=== PATIENT | female | born 1995 | race Caucasian/White ===

== ENCOUNTER 2016-07-13 06:00 | Inpatient (IN) ==
[2016-07-13] MEDS ORDERED: Famotidine 20 MG/2 ML VIAL IVP PRN (06:14)
[2016-07-13] MEDS ORDERED: miSOPROStol 25 MCG TABLET PO PRN (06:14)
[2016-07-13] MEDS ORDERED: Metoclopramide 10 MG/2 ML VIAL IVP PRN (06:14)
[2016-07-13] MEDS ORDERED: Ringers Solution, Lactated 1,000 ML IVC SCH (06:15)
[2016-07-13 07:23] LABS: Basophils # 0.1 K/mcL (0.0-0.2); Basophils % 0.4 %; Eosinophils # 0.1 K/mcL (0.0-0.6); Eosinophils % 1.1 %; Hemoglobin 10.3 g/dL (11.5-15.4); Immature Granulocytes % 0.6 % (0-4); Lymphocytes # 2.8 K/mcL (0.6-4.6); Lymphocytes % 23.6 %; Mean Corpuscular HGB Conc 31.2 g/dL (31.6-35.5); Mean Corpuscular Volume 76.7 fL (83.0-100.0); Mean Platelet Volume 9.5 fL (9.4-12.4); Monocytes # 1.1 K/mcL (0.0-1.3); Monocytes % 9.2 %; Neutrophils # 7.6 K/mcL (1.6-8.9); Platelet Count 312 K/mcL (140-400); Red Cell Distribution Width 15.6 % (11.5-14.5); Segmented Neutrophils % 65.1 %
--- NOTE | 2016-07-13 07:33 | OB/GYN History & Physical ---
Date of Encounter: 07/13/16 Time of Encounter: 07:33 Assessment and Plan (1) 39 weeks gestation of Current visit: Yes Status: Acute (2) Elective induction of labor planned Current visit: Yes Status: Acute Induction of labor with Cytotec (initial dose 25 by mouth) Epidural and Nubain if desired Patient requests NO visitors, wants a birthing ball, and requests no epidural. She wants to utilize a tens unit for pain. She is currently pain free. Encourage ambulation and use of birthing ball Anticipate History of Present Illness Chief complaint: Labor Induction HPI: Ms. Retana is a 21 year old female at 39'5 who presents for induction of labor. Her previous was uncomplicated and she had a vaginal delivery. She states this so far has been uncomplicated. She reports good movement. States this week she has had mucous blood tinged discharge on a few occasions. She denies any vaginal bleeding or fluid loss otherwise. She does admit to some SOB, but thinks it's because her belly is making it difficult to take in deep breaths. Denies chest pain, cramping, headache, vision changes, palpitations. She also denies dysuria but admits to urinary frequency. She denies the inability to void, has had minimal nausea, no vomiting, no diarrhea, no constipation. She is taking no medications. She has not smoke, used illicit drugs, or drank during this . She also denies any contractions or RUQ abdominal pain. Labs: O-, GBS negative, Rubella immune, HbSAG non reactive, T-palladiium negative, HIV negative, Varicella positive. Past Med Surg Social Fam HX - Past Medical History Medical history: no medical history Psychiatric history: no psych history - Past Surgical History Surgical History: other - Social History Smoking Status: Never smoker Alcohol use: none Drug use: none - Family History Mother Hx Family Medical Disorders: No (no history reported.) Obstetrical History - Pregnancies : 3 Review of System OB All systems PM: reviewed and no additional remarkable complaints except as stated - Constitutional Constitutional ROS IM: as per HPI Exam - Constitutional Constitutional: well developed, well nourished, no acute distress - HEENT HEENT: Mucus Membranes Moist - Neck Neck exam: normal inspection - Abdomen Abdomen: Present: bowel sounds normal - Extremities Extremities exam: pedal edema (trace) Results Result Diagrams: 07/13/16 06:45 Abnormal lab results WBC 11.7 K/mcL (4.3-11.1) H 07/13/16 06:45 Hgb 10.3 g/dL (11.5-15.4) L 07/13/16 06:45 Hct 33.0 % (35.3-44.9) L 07/13/16 06:45 MCV 76.7 fL (83.0-100.0) L 07/13/16 06:45 MCH 24.0 pg (28.0-33.3) L 07/13/16 06:45 MCHC 31.2 g/dL (31.6-35.5) L 07/13/16 06:45 RDW 15.6 % (11.5-14.5) H 07/13/16 06:45 All other labs normal. - VTE Reasons for not Prescribing Prophylaxis: Treatment not Indicated - Low risk for VTE
[2016-07-13] MEDS ORDERED: miSOPROStol 100 MCG TABLET PO ONE (07:58)
[2016-07-13] MEDS ORDERED: *HR* Nalbuphine 20 MG/ML AMPUL ONE (10:40)
[2016-07-13] MEDS ORDERED: *HR* Nalbuphine 20 MG/ML AMPUL IVP PRN (10:41)
--- NOTE | 2016-07-13 10:59 | OB Labor Progress Note ---
Date of Encounter: 07/13/16 Time of Encounter: 10:57 Labor Progress Note - Subjective Subjective: Pt reports severe discomfort with contractions at this time. She is requesting Nubain. - Cervix Cervix: 4-5/90/-1 - Heart Tones Heart Tones: Category I - [place]: 1.5-2.5 minutes - Plan Plan: Continue to monitor. Nubain for pain. Frequent repositioning for comfort. Anticipate .
[2016-07-13] MEDS ORDERED: *HR* FentaNYL (PF) 100 MCG/2 ML VIAL IVP PRN (12:35)
[2016-07-13] MEDS ORDERED: *HR* FentaNYL (PF) 100 MCG/2 ML VIAL ONE (12:47)
[2016-07-13] MEDS ORDERED: Lidocaine 1% 20 ML MDV ONE (12:47)
[2016-07-13] MEDS ORDERED: Oxytocin 20 units/ LR 1000 mL 20 UNIT/1,000 ML BAG IVC ONE (13:24)
--- NOTE | 2016-07-13 14:06 | OB/GYN Procedure Note ---
Delivery - Delivery Date: 07/13/16 Provider: Naseem Pan Intrapartum events: none Delivery induction: misoprostol Delivery monitor: external FHT, external uterine Anesthesia: local Estimated Blood Loss: 350 - Infant (s) Infant A Infant Delivery Date: 07/13/16 Infant Delivery Time: 13:32 Presentation: vertex Position: SAKINA Gender: Female Viability: Viable Weight Gram: 3.71 kg at 1 minute: 8 at 5 mins: 9 Shoulder Dystocia: not encountered Specimens collected: cord blood Placenta: spontaneous Cord: nuchal cord - Repair Laceration Description: Labial - Complications Delivery complications: none - Disposition Mom disposition: stable in LDR Goodell disposition: stable in LDR - Comments Comments: Pt s/p without incident. Loose nuchal reduced during delivery of infant. Small left labial tear repaired under local with 2 interuppted vicryl sutures Pt tolerated well. EBL 350 cc.
[2016-07-13] MEDS ORDERED: Measles/Mumps/Rubella Vacc 0.5 ML VIAL SQ PRN (14:23)
[2016-07-13] MEDS ORDERED: *HR* HYDROcodone/Acet 5/325 mg TABLET PO PRN (14:23)
[2016-07-13] MEDS ORDERED: Oxytocin 20 units/ LR 1000 mL 20 UNIT/1,000 ML BAG IVC SCH (14:23)
[2016-07-13] MEDS ORDERED: Benzocaine/Menthol 56 GM AEROSOL SPRAY TP PRN (14:23)
[2016-07-13] MEDS ORDERED: Acetaminophen 325 MG TABLET PO PRN (14:23)
[2016-07-13] MEDS ORDERED: Rho Immune Globulin 1,500 UNIT SYRINGE IM PRN (14:23)
[2016-07-13] MEDS: Ibuprofen 600 MG TABLET PO PRN (18:13)
[2016-07-14 05:29] LABS: Basophils % 0.2 %; Eosinophils # 0.1 K/mcL (0.0-0.6); Eosinophils % 0.5 %; Hematocrit 28.7 % (35.3-44.9); Immature Granulocytes % 0.9 % (0-4); Lymphocytes # 2.6 K/mcL (0.6-4.6); Lymphocytes % 15.1 %; Mean Corpuscular HGB Conc 31.4 g/dL (31.6-35.5); Mean Corpuscular Hemoglobin 24.1 pg (28.0-33.3); Mean Corpuscular Volume 76.9 fL (83.0-100.0); Mean Platelet Volume 9.4 fL (9.4-12.4); Monocytes # 1.6 K/mcL (0.0-1.3); Monocytes % 9.2 %; Neutrophils # 12.6 K/mcL (1.6-8.9); Platelet Count 307 K/mcL (140-400); Red Blood Count 3.73 M/mcL (3.82-4.97); Red Cell Distribution Width 15.7 % (11.5-14.5); Segmented Neutrophils % 74.1 %
--- NOTE | 2016-07-14 08:13 | Discharge Summary ---
Date of Encounter: 07/14/16 Time of Encounter: 08:10 - Discharge Diagnosis (1) Status post vaginal delivery Priority: Primary Status: Acute (2) Acute blood loss anemia Priority: Secondary Status: Acute - Discharge Medications Prescriptions: Ibuprofen [Motrin] 600 mg PO Q6HR PRN #30 tablet PRN Reason: Cramping Ferrous Sulfate 325 mg PO DAILY #40 tablet Home Medications: Ferrous Sulfate 325 mg PO DAILY #40 tablet 07/14/16 [Rx] Ibuprofen [Motrin] 600 mg PO Q6HR PRN #30 tablet 07/14/16 [Rx] Allergies/Adverse Reactions: Allergies No Known Allergies Allergy (Verified 07/13/16 09:02) Data Procedures and tests throughout hospitalization: Laboratory Tests 07/13/16 07/14/16 06:45 05:06 WBC 11.7 H 17.0 H RBC 4.30 3.73 L Hgb 10.3 L 9.0 L Hct 33.0 L 28.7 L MCV 76.7 L 76.9 L MCH 24.0 L 24.1 L MCHC 31.2 L 31.4 L RDW 15.6 H 15.7 H Plt Count 312 307 MPV 9.5 9.4 Immature Gran % 0.6 0.9 Seg Neutrophils % 65.1 74.1 Lymphocytes % 23.6 15.1 Monocytes % 9.2 9.2 Eosinophils % 1.1 0.5 Basophils % 0.4 0.2 Neutrophils # 7.6 12.6 H Lymphocytes # 2.8 2.6 Monocytes # 1.1 1.6 H Eosinophils # 0.1 0.1 Basophils # 0.1 0.0 Labs on day of discharge: Labs from last 24 hours 07/14/16 05:06 WBC 17.0 H RBC 3.73 L Hgb 9.0 L Hct 28.7 L MCV 76.9 L MCH 24.1 L MCHC 31.4 L RDW 15.7 H Plt Count 307 MPV 9.4 Immature Gran % 0.9 Seg Neutrophils % 74.1 Lymphocytes % 15.1 Monocytes % 9.2 Eosinophils % 0.5 Basophils % 0.2 Neutrophils # 12.6 H Lymphocytes # 2.6 Monocytes # 1.6 H Eosinophils # 0.1 Basophils # 0.0 Date of admission: 07/13/16 06:03 Primary care physician: PCP NO Consults: 07/13/16 14:23 Consult to [facility] [CONS] Routine Comment: Vaginal delivery, consult needed Discharging clinician: Eliu Weldon Anticipated date of discharge: 07/14/16 - Patient Status Disposition: Home, Self-Care Condition: Good Functional capacity at discharge: independent ambulation Overall status at discharge: patient is progressing back to baseline - Discharge Instructions Follow Up With: LUISANA,PCP [Primary Care Provider] - Naseem Pan MD [Partnered Physician] - - Diet and Activity Activity: increase activity as tolerated Diet: advance to your usual diet Hospital Course Reason for admission: induction of labor Delivery: Episiotomy: none Laceration: none complications: none Discharge diagnosis: IUP at term delivered Hospital course: Patient is a 21-year-old female who was brought in for induction of labor. Patient delivered vaginally without any complications. Patient's hospital course was unremarkable and she was discharged home on hospital day #1 with prescription for Motrin 600 mg and iron sulfate. Patient will follow-up in the office in 4 weeks patient's condition at the time of discharge was stable Time Attestation: Total time spent providing and/or coordinating discharge services: Exam - Constitutional Vitals: Temp Pulse Resp BP Pulse Ox 98.4 F 72 14 101/60 97 07/14/16 03:14 07/14/16 03:14 07/14/16 03:14 07/14/16 03:14 07/14/16 03:14 General appearance IM: A&O X 3 - Respiratory Respiratory exam: Present: CTAB - GI/Abdominal GI/Abdominal exam IM: normal bowel sounds - Uterus Position: At Umbilicus
[2016-07-14 08:20] VITALS: BP 115/73
[2016-07-14] MEDS: Ibuprofen 600 MG TABLET PO PRN (08:49)
[2016-07-14] MEDS ORDERED: Prenatal Vit/FA 1 EACH TABLET PO SCH (09:00)
== END 2016-07-14 15:10 | disposition home or self-care (01) | DRG 775 ==
LOC: 1NENULAB 06:03 → 1NENUOBS 15:33
PROVIDERS: ADMIT Obstetrics & Gynecology; ATTEND Obstetrics & Gynecology

== ENCOUNTER 2017-06-23 21:48 | Observation (INO) ==
[2017-06-23 22:40] LABS: Bilirubin,Urine Negative (Negative); Blood,Urine Negative (Negative); Clarity,Urine Clear (Clear); Color,Urine Yellow (Yellow); Glucose,Urine (UA) Normal (Normal); Ketones,Urine Negative (Negative); Leukocyte Esterase,Urine Negative (Negative); Nitrite,Urine Negative (Negative); Protein,Urine Negative (Neg-Trace); Specific Gravity,Urine 1.026 (1.010-1.025); Urobilinogen,Urine Normal (Normal)
[2017-06-23] MEDS ORDERED: 0.9 % Sodium Chloride 1,000 ML IVC ONE (22:56)
[2017-06-23] MEDS ORDERED: Ondansetron 4 MG/2 ML VIAL IVP ONE (22:57)
--- NOTE | 2017-06-23 23:00 | Emergency Department Note ---
Disposition Clinical Impression: Brugada syndrome, Influenza B Disposition: Admitted As Inpatient Condition: Fair Referrals: NONE,PCP [Non-Partnered Physician] - Forms: ED Satisfaction Letter Time of Disposition: 01:18 Nausea/Vomiting/Diarrhea HPI - General Chief complaint: ED Nausea/Vomiting/Diarrhea Stated complaint: dizzy/vomiting Time Seen by Provider: 06/23/17 22:53 Source: patient Mode of arrival: ambulatory Limitations: no limitations Nursing Notes Reviewed: Yes Vital Signs Reviewed: Yes - History of Present Illness HPI Narrative: Patient presents to the ED with the chief complaint of nausea and vomiting and dizziness. States she woke up not feeling well and has continued to fill worse throughout the day. States she has been vomiting anything she has to eat or drink. States that it got to the point where she feels dizzy whenever she stands up. Also complaining of a sore throat that she thinks this is from the vomiting. Denies any fever. No dysuria or hematuria. States she only has abdominal pain when she vomits and is located in epigastrium. Otherwise healthy. - Related Data Previous Rx's Medication Instructions Recorded Ferrous Sulfate 325 mg PO DAILY #40 tablet 07/14/16 Ferrous Sulfate 325 mg PO DAILY #40 tablet 07/14/16 Ibuprofen [Motrin] 600 mg PO Q6HR PRN #30 tablet 07/14/16 Ibuprofen [Motrin] 600 mg PO Q6HR PRN #30 tablet 07/14/16 Allergies Allergy/AdvReac Type Severity Reaction Status Date / Time No Known Allergies Allergy Verified 07/13/16 09:02 Review of Systems: As reviewed in the HPI. All other systems reviewed are negative or normal. Past Medical History - Past Medical History Attestation: Yes The following information was validated with the patient. Source: patient Medical history: Reports: other Surgical history: Reports: other Psychiatric history: Reports: anxiety, depression - Social History Smoking Status: Never smoker Smokeless Tobacco Status: No Alcohol use: Reports: occasionally Drug use: Reports: none Physical Exam - General Limitations: no limitations General appearance: alert, in no apparent distress - Head Head exam: atraumatic, normocephalic, normal inspection - Eye Eye exam: Present: normal appearance, PERRL, EOMI - ENT ENT exam: normal exam, normal oropharynx, mucous membranes moist - Chest Chest inspection: Present: normal inspection, symmetric chest wall rise - Respiratory Respiratory exam: Present: normal lung sounds bilaterally - Cardiovascular Cardiovascular exam: Present: normal rhythm, tachycardia, normal heart sounds. Absent: regular rate - Abdominal Exam Abdominal exam: Present: soft, Non-Tender. Absent: tenderness, distention, guarding, rebound, rigidity - Extremities Exam Extremities exam: Present: normal inspection, full ROM. Absent: tenderness, pedal edema - Neurological Exam Neurological exam: Present: alert, oriented X3 - Psychiatric Psychiatric exam: Present: normal affect, normal mood - Skin Skin exam: Present: warm, dry, intact, normal color Course Course Narrative: Patient presenting with dizziness and vomiting. Seems to be a gastroenteritis- type illness. She does not toxic, but does appear ill, but she is concerned she is dehydrated. Will get labs and EKG. - Reevaluation(s) Reevaluation #1: EKG is back and is concerning for Brugada syndrome. We will page the on-call chief librarian circulation department and have him take a look at the EKG. Spoke with Dr. Nettles, the on-call chief librarian circulation department. He agreed with Brugada. We will admit the patient for cardiac consult in the morning. In the meantime, we will attempt to find the source of her fever. We will check her for the flu, we will also get a chest x-ray and abdominal CT. Patient is flu be positive, which would account for fever. Patient will be admitted. Vital Signs Temperature 100.2 F H 06/23/17 21:50 Pulse Rate 110 06/23/17 21:50 Respiratory Rate 24 06/23/17 21:50 Blood Pressure 100/67 06/23/17 21:50 O2 Sat by Pulse Oximetry 96 06/23/17 21:50 Temperature 99.4 F 06/24/17 00:58 Pulse Rate 94 06/24/17 00:58 Respiratory Rate 20 06/24/17 00:58 Blood Pressure 89/58 06/24/17 00:58 O2 Sat by Pulse Oximetry 96 06/24/17 00:58 Oxygen Delivery Oxygen Delivery Room Air Nausea/Vomiting/Diarrhea - Lab Data Result diagrams: 06/23/17 22:51 06/23/17 22:51 Lab Results 06/23/17 06/23/17 06/23/17 Range/Units 22:25 22:25 22:51 WBC 4.3 (4.3-11.1) K/mcL RBC 4.54 (3.82-4.97) M/mcL Hgb 13.5 (11.5-15.4) g/dL Hct 40.0 (35.3-44.9) % MCV 88.1 (83.0-100.0) fL MCH 29.7 (28.0-33.3) pg MCHC 33.8 (31.6-35.5) g/dL RDW 14.1 (11.5-14.5) % Plt Count 169 (140-400) K/mcL MPV 9.3 L (9.4-12.4) fL Immature Gran % 0.2 (0-4) % Seg Neutrophils % 54.8 % Lymphocytes % 29.3 % Monocytes % 15.0 % Eosinophils % 0.2 % Basophils % 0.5 % Neutrophils # 2.4 (1.6-8.9) K/mcL Lymphocytes # 1.3 (0.6-4.6) K/mcL Monocytes # 0.7 (0.0-1.3) K/mcL Eosinophils # 0.0 (0.0-0.6) K/mcL Basophils # 0.0 (0.0-0.2) K/mcL ESR (0-15) mm/hr Sodium (136-145) mEq/L Potassium (3.5-5.1) mEq/L Chloride (98-107) mEq/L Carbon Dioxide (23-29) mEq/L BUN (6-20) mg/dL Creatinine (0.60-1.20) mg/dL Est GFR ( Amer) (> 60) Est GFR (Non-Af Amer) (> 60) BUN/Creatinine Ratio (6-26) Glucose (70-105) mg/dL Calculated Osmolality (280-300) Lactic Acid (0.5-2.2) mmol/L Calcium (8.6-10.3) mg/dL Total Bilirubin (0.3-1.0) mg/dL AST (13-39) Units/L ALT (7-52) Units/L Alkaline Phosphatase (34-104) Units/L Troponin I (< 0.04) ng/mL C-Reactive Protein (Less than 10) mg/L Serum Total Protein (6.4-8.9) g/dL Albumin (3.5-5.7) g/dL Globulin (2.4-3.5) g/dL Albumin/Globulin Ratio (1.1-2.2) Lipase (11-82) Units/L Urine Color Yellow (Yellow) Urine Clarity Clear (Clear) Urine pH 6.0 (5.0-8.0) pH Units Ur Specific [place] 1.026 H (1.010-1.025) Urine Protein Negative (Neg-Trace) mg/dL Urine Glucose (UA) Normal (Normal) mg/dL Urine Ketones Negative (Negative) mg/dL Urine Blood Negative (Negative) Urine Nitrite Negative (Negative) Urine Bilirubin Negative (Negative) Urine Urobilinogen Normal (Normal) mg/dL Ur Leukocyte Esterase Negative (Negative) Ur Culture Indicated? NO (NO) Urine Test Negative (Negative) 06/23/17 06/23/17 06/23/17 Range/Units 22:51 22:51 22:57 WBC (4.3-11.1) K/mcL RBC (3.82-4.97) M/mcL Hgb (11.5-15.4) g/dL Hct (35.3-44.9) % MCV (83.0-100.0) fL MCH (28.0-33.3) pg MCHC (31.6-35.5) g/dL RDW (11.5-14.5) % Plt Count (140-400) K/mcL MPV (9.4-12.4) fL Immature Gran % (0-4) % Seg Neutrophils % % Lymphocytes % % Monocytes % % Eosinophils % % Basophils % % Neutrophils # (1.6-8.9) K/mcL Lymphocytes # (0.6-4.6) K/mcL Monocytes # (0.0-1.3) K/mcL Eosinophils # (0.0-0.6) K/mcL Basophils # (0.0-0.2) K/mcL ESR 13 (0-15) mm/hr Sodium 138 (136-145) mEq/L Potassium 3.6 (3.5-5.1) mEq/L Chloride 104 (98-107) mEq/L Carbon Dioxide 27 (23-29) mEq/L BUN 8 (6-20) mg/dL Creatinine 0.90 (0.60-1.20) mg/dL Est GFR ( Amer) > 60 (> 60) Est GFR (Non-Af Amer) > 60 (> 60) BUN/Creatinine Ratio 9 (6-26) Glucose 99 (70-105) mg/dL Calculated Osmolality 284 (280-300) Lactic Acid 0.9 (0.5-2.2) mmol/L Calcium 9.2 (8.6-10.3) mg/dL Total Bilirubin 0.3 (0.3-1.0) mg/dL AST 27 (13-39) Units/L ALT 12 (7-52) Units/L Alkaline Phosphatase 85 (34-104) Units/L Troponin I < 0.03 (< 0.04) ng/mL C-Reactive Protein 12 H (Less than 10) mg/L Serum Total Protein 7.3 (6.4-8.9) g/dL Albumin 4.4 (3.5-5.7) g/dL Globulin 2.9 (2.4-3.5) g/dL Albumin/Globulin Ratio 1.5 (1.1-2.2) Lipase 28 (11-82) Units/L Urine Color (Yellow) Urine Clarity (Clear) Urine pH (5.0-8.0) pH Units Ur Specific [place] (1.010-1.025) Urine Protein (Neg-Trace) mg/dL Urine Glucose (UA) (Normal) mg/dL Urine Ketones (Negative) mg/dL Urine Blood (Negative) Urine Nitrite (Negative) Urine Bilirubin (Negative) Urine Urobilinogen (Normal) mg/dL Ur Leukocyte Esterase (Negative) Ur Culture Indicated? (NO) Urine Test (Negative)
[2017-06-23 23:04] LABS: Basophils % 0.5 %; Eosinophils % 0.2 %; Hemoglobin 13.5 g/dL (11.5-15.4); Immature Granulocytes % 0.2 % (0-4); Lymphocytes # 1.3 K/mcL (0.6-4.6); Lymphocytes % 29.3 %; Mean Corpuscular HGB Conc 33.8 g/dL (31.6-35.5); Mean Corpuscular Hemoglobin 29.7 pg (28.0-33.3); Mean Corpuscular Volume 88.1 fL (83.0-100.0); Mean Platelet Volume 9.3 fL (9.4-12.4); Monocytes # 0.7 K/mcL (0.0-1.3); Neutrophils # 2.4 K/mcL (1.6-8.9); Platelet Count 169 K/mcL (140-400); Red Blood Count 4.54 M/mcL (3.82-4.97); Red Cell Distribution Width 14.1 % (11.5-14.5); Segmented Neutrophils % 54.8 %
[2017-06-23 23:27] LABS: Alanine Aminotransferase 12 Units/L (7-52); Albumin 4.4 g/dL (3.5-5.7); Albumin/Globulin Ratio 1.5 (1.1-2.2); Alkaline Phosphatase 85 Units/L (34-104); Aspartate Amino Transferase 27 Units/L (13-39); BUN/Creatinine Ratio 9 (6-26); Bilirubin,Total 0.3 mg/dL (0.3-1.0); Blood Urea Nitrogen 8 mg/dL (6-20); Calcium 9.2 mg/dL (8.6-10.3); Carbon Dioxide 27 mEq/L (23-29); Chloride 104 mEq/L (98-107); Globulin 2.9 g/dL (2.4-3.5); Glucose 99 mg/dL (70-105); Lipase 28 Units/L (11-82); Osmolality,Calculated 284 (280-300); Potassium 3.6 mEq/L (3.5-5.1); Sodium 138 mEq/L (136-145); Total Protein 7.3 g/dL (6.4-8.9); eGFR For African Americans > 60 (> 60); eGFR For Non-African Americans > 60 (> 60)
[2017-06-23 23:55] LABS: Troponin I < 0.03 ng/mL (< 0.04)
[2017-06-23] MEDS ORDERED: Isovue-370 500 ML INFUS..BTL IV ONE (23:59)
[2017-06-24 00:01] LABS: C-Reactive Protein 12 mg/L (Less than 10)
--- NOTE | 2017-06-24 00:21 | Emergency Department Note ---
Disposition Clinical Impression: Brugada syndrome, Influenza B Disposition: Admitted As Inpatient Condition: Fair General Adult HPI - General Chief complaint: ED Nausea/Vomiting/Diarrhea Stated complaint: dizzy/vomiting Time Seen by Provider: 06/23/17 22:53 Source: patient Mode of arrival: ambulatory Limitations: no limitations Nursing Notes Reviewed: Yes Vital Signs Reviewed: Yes - History of Present Illness Pain Scale: 0 - Related Data Previous Rx's Medication Instructions Recorded Ferrous Sulfate 325 mg PO DAILY #40 tablet 07/14/16 Ferrous Sulfate 325 mg PO DAILY #40 tablet 07/14/16 Ibuprofen [Motrin] 600 mg PO Q6HR PRN #30 tablet 07/14/16 Ibuprofen [Motrin] 600 mg PO Q6HR PRN #30 tablet 07/14/16 Allergies Allergy/AdvReac Type Severity Reaction Status Date / Time No Known Allergies Allergy Verified 07/13/16 09:02 Past Medical History - Past Medical History Medical history: Reports: other Surgical history: Reports: other Psychiatric history: Reports: anxiety, depression - Social History Smoking Status: Never smoker Smokeless Tobacco Status: No Alcohol use: Reports: occasionally Drug use: Reports: none Physical Exam - General Limitations: no limitations General appearance: alert, in no apparent distress Course Vital Signs Temperature 100.2 F H 06/23/17 21:50 Pulse Rate 110 06/23/17 21:50 Respiratory Rate 24 06/23/17 21:50 Blood Pressure 100/67 06/23/17 21:50 O2 Sat by Pulse Oximetry 96 06/23/17 21:50 Temperature 99.4 F 06/24/17 00:58 Pulse Rate 94 06/24/17 00:58 Respiratory Rate 20 06/24/17 00:58 Blood Pressure 89/58 06/24/17 00:58 O2 Sat by Pulse Oximetry 96 06/24/17 00:58 Oxygen Delivery Oxygen Delivery Room Air Medical Decision Making - Lab Data Result diagrams: 06/23/17 22:51 06/23/17 22:51 Lab Results 06/23/17 06/23/17 06/23/17 Range/Units 22:25 22:25 22:51 WBC 4.3 (4.3-11.1) K/mcL RBC 4.54 (3.82-4.97) M/mcL Hgb 13.5 (11.5-15.4) g/dL Hct 40.0 (35.3-44.9) % MCV 88.1 (83.0-100.0) fL MCH 29.7 (28.0-33.3) pg MCHC 33.8 (31.6-35.5) g/dL RDW 14.1 (11.5-14.5) % Plt Count 169 (140-400) K/mcL MPV 9.3 L (9.4-12.4) fL Immature Gran % 0.2 (0-4) % Seg Neutrophils % 54.8 % Lymphocytes % 29.3 % Monocytes % 15.0 % Eosinophils % 0.2 % Basophils % 0.5 % Neutrophils # 2.4 (1.6-8.9) K/mcL Lymphocytes # 1.3 (0.6-4.6) K/mcL Monocytes # 0.7 (0.0-1.3) K/mcL Eosinophils # 0.0 (0.0-0.6) K/mcL Basophils # 0.0 (0.0-0.2) K/mcL ESR (0-15) mm/hr Sodium (136-145) mEq/L Potassium (3.5-5.1) mEq/L Chloride (98-107) mEq/L Carbon Dioxide (23-29) mEq/L BUN (6-20) mg/dL Creatinine (0.60-1.20) mg/dL Est GFR ( Amer) (> 60) Est GFR (Non-Af Amer) (> 60) BUN/Creatinine Ratio (6-26) Glucose (70-105) mg/dL Calculated Osmolality (280-300) Lactic Acid (0.5-2.2) mmol/L Calcium (8.6-10.3) mg/dL Total Bilirubin (0.3-1.0) mg/dL AST (13-39) Units/L ALT (7-52) Units/L Alkaline Phosphatase (34-104) Units/L Troponin I (< 0.04) ng/mL C-Reactive Protein (Less than 10) mg/L Serum Total Protein (6.4-8.9) g/dL Albumin (3.5-5.7) g/dL Globulin (2.4-3.5) g/dL Albumin/Globulin Ratio (1.1-2.2) Lipase (11-82) Units/L Urine Color Yellow (Yellow) Urine Clarity Clear (Clear) Urine pH 6.0 (5.0-8.0) pH Units Ur Specific [place] 1.026 H (1.010-1.025) Urine Protein Negative (Neg-Trace) mg/dL Urine Glucose (UA) Normal (Normal) mg/dL Urine Ketones Negative (Negative) mg/dL Urine Blood Negative (Negative) Urine Nitrite Negative (Negative) Urine Bilirubin Negative (Negative) Urine Urobilinogen Normal (Normal) mg/dL Ur Leukocyte Esterase Negative (Negative) Ur Culture Indicated? NO (NO) Urine Test Negative (Negative) 06/23/17 06/23/17 06/23/17 Range/Units 22:51 22:51 22:57 WBC (4.3-11.1) K/mcL RBC (3.82-4.97) M/mcL Hgb (11.5-15.4) g/dL Hct (35.3-44.9) % MCV (83.0-100.0) fL MCH (28.0-33.3) pg MCHC (31.6-35.5) g/dL RDW (11.5-14.5) % Plt Count (140-400) K/mcL MPV (9.4-12.4) fL Immature Gran % (0-4) % Seg Neutrophils % % Lymphocytes % % Monocytes % % Eosinophils % % Basophils % % Neutrophils # (1.6-8.9) K/mcL Lymphocytes # (0.6-4.6) K/mcL Monocytes # (0.0-1.3) K/mcL Eosinophils # (0.0-0.6) K/mcL Basophils # (0.0-0.2) K/mcL ESR 13 (0-15) mm/hr Sodium 138 (136-145) mEq/L Potassium 3.6 (3.5-5.1) mEq/L Chloride 104 (98-107) mEq/L Carbon Dioxide 27 (23-29) mEq/L BUN 8 (6-20) mg/dL Creatinine 0.90 (0.60-1.20) mg/dL Est GFR ( Amer) > 60 (> 60) Est GFR (Non-Af Amer) > 60 (> 60) BUN/Creatinine Ratio 9 (6-26) Glucose 99 (70-105) mg/dL Calculated Osmolality 284 (280-300) Lactic Acid 0.9 (0.5-2.2) mmol/L Calcium 9.2 (8.6-10.3) mg/dL Total Bilirubin 0.3 (0.3-1.0) mg/dL AST 27 (13-39) Units/L ALT 12 (7-52) Units/L Alkaline Phosphatase 85 (34-104) Units/L Troponin I < 0.03 (< 0.04) ng/mL C-Reactive Protein 12 H (Less than 10) mg/L Serum Total Protein 7.3 (6.4-8.9) g/dL Albumin 4.4 (3.5-5.7) g/dL Globulin 2.9 (2.4-3.5) g/dL Albumin/Globulin Ratio 1.5 (1.1-2.2) Lipase 28 (11-82) Units/L Urine Color (Yellow) Urine Clarity (Clear) Urine pH (5.0-8.0) pH Units Ur Specific [place] (1.010-1.025) Urine Protein (Neg-Trace) mg/dL Urine Glucose (UA) (Normal) mg/dL Urine Ketones (Negative) mg/dL Urine Blood (Negative) Urine Nitrite (Negative) Urine Bilirubin (Negative) Urine Urobilinogen (Normal) mg/dL Ur Leukocyte Esterase (Negative) Ur Culture Indicated? (NO) Urine Test (Negative) Attestation Statement - Attestation Attestation: I, Shashank Lopez MD, personally evaluated this patient and discussed their management with the resident physician. I reviewed the resident's note and agree with the documented findings, medical decision making, and plan of care. 22-year-old female presents to the emergency department with a complaint of nausea and vomiting all day today. She states she felt bad this morning when she got up and it has progressed throughout the day. She has vomited 6-8 times. She also has had chills and subjective fever. No diarrhea. No abdominal pain. No melena, hematemesis, or hematochezia. No prior abdominal surgeries. No dysuria or gross hematuria. No increased urinary frequency. No cough or chest pain or shortness of breath. No palpitations. She also complains of feeling dizzy and lightheaded when she gets up and moves around. She states that it feels like the room is spinning and she feels like she is going to pass out. No syncope. On examination patient is a well-developed well-nourished young female in no acute distress. She is alert and oriented 3. There is no cyanosis or diaphoresis. Mucous membranes are moist. Neck is supple and nontender with no lymphadenopathy and full range of motion. Chest is nontender to palpation. Breath sounds are clear and equal bilaterally. Heart regular with a mild tachycardia. Abdomen soft and nontender with decreased bowel sounds. No guarding or rebound tenderness. No CVA tenderness. No organomegaly or masses. No tympany or distention. No pedal edema. No gross focal neurological deficits. Labs reviewed. EKG shows a sinus rhythm with first-degree block, MA 217. QRS 118. QTC 394. Type III Brugada pattern, ST elevation in V1 and V2. EKG was reviewed by the dairy bar manager, Dr. Nettles. He agrees it is a Brugada pattern but does not feel there is acute [place]. He recommends admission by the hospitalist with cardiology consultation. Labs reviewed. Chest x-ray and CT the abdomen and pelvis are pending. The hospitalist, Dr. Jackson, was consulted and accepted admission of the patient.
--- NOTE | 2017-06-24 02:55 | Internal Med History&Physical ---
Date of Encounter: 06/24/17 Time of Encounter: 02:36 Internal Medicine - H&P: HPI History of present illness: Ms. Ochoa is a 22 year old female Past Med Surg Social Fam HX - Past Medical History Medical history: other Psychiatric history: anxiety, depression - Past Surgical History Surgical History: other - Social History Smoking Status: Never smoker Smokeless Tobacco Status: No Alcohol use: occasionally Drug use: none Internal Medicine - H&P: Meds Ferrous Sulfate 325 mg PO DAILY #40 tablet 07/14/16 [Rx] Ferrous Sulfate 325 mg PO DAILY #40 tablet 07/14/16 [Rx] Ibuprofen [Motrin] 600 mg PO Q6HR PRN #30 tablet 07/14/16 [Rx] Ibuprofen [Motrin] 600 mg PO Q6HR PRN #30 tablet 07/14/16 [Rx] 3 Allergy/AdvReac Type Severity Reaction Status Date / Time No Known Allergies Allergy Verified 07/13/16 09:02 All Systems PM: A 10-system review of systems was performed and is negative for pertinent findings except as documented above in the HPI. - Constitutional Vitals: Temp Pulse Resp BP Pulse Ox 99.4 F 94 20 89/58 96 06/24/17 00:58 06/24/17 00:58 06/24/17 00:58 06/24/17 00:58 06/24/17 00:58 Internal Med - H&P Results - Labs CBC & Chem 7: 06/23/17 22:51 06/23/17 22:51 Labs: Short CBC 06/23/17 Range/Units 22:51 WBC 4.3 (4.3-11.1) K/mcL Hgb 13.5 (11.5-15.4) g/dL Hct 40.0 (35.3-44.9) % Plt Count 169 (140-400) K/mcL Neutrophils # 2.4 (1.6-8.9) K/mcL BMP 06/23/17 22:51 Sodium 138 Potassium 3.6 Chloride 104 Carbon Dioxide 27 BUN 8 Creatinine 0.90 Glucose 99 Calcium 9.2 Cardiac Enzymes 06/23/17 Range/Units 22:51 Troponin I < 0.03 (< 0.04) ng/mL Liver Function 06/23/17 Range/Units 22:51 Total Bilirubin 0.3 (0.3-1.0) mg/dL AST 27 (13-39) Units/L ALT 12 (7-52) Units/L Alkaline Phosphatase 85 (34-104) Units/L Albumin 4.4 (3.5-5.7) g/dL Urine 06/23/17 Range/Units 22:25 Urine Color Yellow (Yellow) Urine Clarity Clear (Clear) Urine pH 6.0 (5.0-8.0) pH Units Ur Specific [place] 1.026 H (1.010-1.025) Urine Protein Negative (Neg-Trace) mg/dL Urine Glucose (UA) Normal (Normal) mg/dL - Impressions ITS Impressions Chest X-Ray 06/24/17 00:05 IMPRESSION: No acute disease. D/ / Rafa Becerra MD / Rafa Becerra MD Interpreting Provider: Rafa Becerra MD Abdomen/Pelvis CT 06/24/17 00:10 IMPRESSION: No acute findings within the abdomen or pelvis. The appendix caliber is at the upper limits of normal. However there are no significant inflammatory changes to suggest acute appendicitis. There prominent periuterine/adnexal veins, which are nonspecific, but may represent pelvic congestion syndrome in the proper clinical setting. D/ / Huy Enriquez MD / Huy Enriquez MD Interpreting Provider: Huy Enriquez MD - Time Spent With Patient Total time spent is greater than 50% in coordination of care (as documented) at patient's floor/unit and/or counseling patient:
[2017-06-24] MEDS ORDERED: Naloxone 0.4 MG/ML INJ IVP PRN (03:08)
[2017-06-24] MEDS ORDERED: Ibuprofen 400 MG TABLET PO PRN (03:08)
[2017-06-24] MEDS ORDERED: Promethazine 12.5 MG in 0.9 % Sodium Chloride 50 ML IVPB PRN (03:15)
--- NOTE | 2017-06-24 03:18 | Internal Med History&Physical ---
<Mary Dhaliwal H - Last Filed: 06/24/17 03:14> Date of Encounter: 06/24/17 Time of Encounter: 03:14 Internal Medicine - H&P: HPI Chief complaint: nausea, vomitting, fever Admitted From: Emergency Dept Plans for Post Hospital Care: Home History of present illness: Ms. Ochoa is a 22 year old female who presents to [facility] on 06/24/2007 with a 10 hour history of acute onset nausea, vomiting, and fever. Patient states her symptoms began this morning with nausea and fever. Her vomiting began around 8:30 at night. She reports some dizziness and lightheadedness. She denies headaches, visual disturbances, or syncope. She denies any chest pain, palpitations, shortness of breath, abdominal pain, or diarrhea. In the ED, the patient was found to have what appears to be a Brugada pattern on EKG examination with elevations in V1 and V2. Cardiology was consulted from the ED. Abdominopelvic CT scan was negative for acute process, however, it did demonstrate pelvic congestion and enlarged appendix. On examination, patient is resting comfortably. While she looks sick, she is nontoxic appearing. She denies any family history of cardiac arrhythmias, early sudden , or palpitations. Her youngest child was born approximately a year ago and the patient is still lactating. She denies any medical problems in her past including ever noticing any palpitations, shortness of breath, or chest pain. Past Med Surg Social Fam HX - Past Medical History Attestation: Yes The following information was validated with the patient. Source: patient, old records reviewed Medical history: other Psychiatric history: anxiety, depression - Past Surgical History Surgical History: other - Social History Smoking Status: Never smoker Smokeless Tobacco Status: No Alcohol use: occasionally Drug use: none Internal Medicine - H&P: Meds Ferrous Sulfate 325 mg PO DAILY #40 tablet 07/14/16 [Rx] Ferrous Sulfate 325 mg PO DAILY #40 tablet 07/14/16 [Rx] Ibuprofen [Motrin] 600 mg PO Q6HR PRN #30 tablet 07/14/16 [Rx] Ibuprofen [Motrin] 600 mg PO Q6HR PRN #30 tablet 07/14/16 [Rx] 3 Allergy/AdvReac Type Severity Reaction Status Date / Time No Known Allergies Allergy Verified 07/13/16 09:02 All Systems PM: A 10-system review of systems was performed and is negative for pertinent findings except as documented above in the HPI. - Constitutional Constitutional: fever(s), no anorexia, no chills, no fatigue, no malaise, no night sweats, no weakness - EENT Eyes: no change in vision, no seeing flashes Nose, mouth and throat: no nasal congestion, no sinus pain, no sinus pressure, no sore throat - Cardiovascular Cardiovascular ROS IM: no chest pain, no claudication, no diaphoresis, no dyspnea, no dyspnea on exertion, no edema, no irregular heart rhythm, no lightheadedness, no orthopnea, no palpitations, no paroxysmal nocturnal dyspnea , no syncope - Respiratory Respiratory: no cough, no dyspnea, no chest congestion - Gastrointestinal Gastrointestinal: nausea, vomiting, no change in stool character, no coffee ground emesis, no diarrhea, no hematemesis, no hematochezia, no loose stools, no melena - Genitourinary Genitourinary: no abnormal menses, no abnormal vaginal bleeding - Integumentary Integumentary IM: no rash - Neurological Neurological ROS: no abnormal speech, no numbness - Constitutional Vitals: Temp Pulse Resp BP Pulse Ox 98.6 F 77 16 100/58 97 06/24/17 03:05 06/24/17 03:05 06/24/17 03:05 06/24/17 03:05 06/24/17 03:05 General appearance: Present: mild distress, A&O X 3, pleasant, answers questions appropriately - Head Head exam: Present: atraumatic, normocephalic - Eye Eye exam: Present: conjuntiva pink, sclera anicteric - Neck Neck exam general surgery: Present: supple, trachea midline. Absent: lymphadenopathy - Respiratory Respiratory exam: Present: CTAB. Absent: accessory muscle use, rales, rhonchi, wheezes - Cardiovascular Cardiovascular exam: Present: RRR, +S1, +S2. Absent: diastolic murmur, gallop, rubs, systolic murmur - GI/Abdominal GI/Abdominal exam: Present: normal bowel sounds, soft, no peritoneal signs. Absent: distended, firm, hernia, rebound, tenderness - Extremities Exam Extremities exam: Present: warm, radial pulses palpable and symmetrical. Absent : calf tenderness, cyanotic, pedal edema, tenderness Internal Med - H&P Results - Labs CBC & Chem 7: 06/23/17 22:51 06/23/17 22:51 - Assessment and plan (1) Brugada syndrome Current Visit: No Status: Acute Assessment and plan: 22-year-old female with EKG findings suggestive of Brugada pattern. -Denies family history. 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 Unclear etiology. -Cardiology consulted and will see the patient in the morning. -We will get an echocardiogram for the morning. -Serial troponins. -EKG in the morning -Avoid Zofran as it prolongs QT interval. -Tight control of fevers as fevers can trigger Brugada pattern or sudden cardiac in those with underlying Brugada pattern. (2) Influenza B Current Visit: No Status: Acute Assessment and plan: Patient positive for influenza B. -Tamiflu twice a day. -Phenergan when necessary for nausea and vomiting. -Avoid Zofran as it increases QT interval. -Tight control of fevers as fevers can trigger Brugada pattern or sudden cardiac in those with underlying Brugada pattern. - Time Spent With Patient Total time spent is greater than 50% in coordination of care (as documented) at patient's floor/unit and/or counseling patient: <Jese Mckeon - Last Filed: 06/24/17 05:41> Date of Encounter: 06/24/17 Time of Encounter: 04:15 - Constitutional Constitutional: fever(s) - EENT Ears: no tinnitus - Cardiovascular Cardiovascular ROS IM: lightheadedness, syncope (rare episodes of syncope -- mostly when ), no chest pain, no diaphoresis, no dyspnea, no dyspnea on exertion - Respiratory Respiratory: no cough, no dyspnea, no chest congestion - Gastrointestinal Gastrointestinal: nausea, vomiting - Neurological Neurological ROS: no focal weakness, no frequent falls, no headache(s) - Constitutional Vitals: Temp Pulse Resp BP Pulse Ox 98.6 F 77 16 100/58 97 06/24/17 03:05 06/24/17 03:05 06/24/17 03:05 06/24/17 03:05 06/24/17 03:05 General appearance: Present: A&O X 3, pleasant - Eye Eye exam: Present: EOMI, PERRL. Absent: scleral icterus Pupils: Present: normal accommodation - ENT ENT exam: Present: mucous membranes dry, normal exam - Neck Neck exam general surgery: Present: supple. Absent: tenderness, nuchal rigidity , thyromegaly - Respiratory Respiratory exam: Present: CTAB. Absent: chest wall tenderness, rales, rhonchi , wheezes, tachypnea - Cardiovascular Cardiovascular exam: Present: RRR, +S1, +S2. Absent: diastolic murmur, systolic murmur - GI/Abdominal GI/Abdominal exam: Present: normal bowel sounds, soft. Absent: tenderness - Extremities Exam Extremities exam: Present: full ROM, normal capillary refill, warm, radial pulses palpable and symmetrical. Absent: calf tenderness - Back Exam Back exam: Present: normal inspection. Absent: CVA tenderness (L), CVA tenderness (R) - Neurological Exam Neurological exam: Present: alert, CN II-XII intact, oriented X3, no focal deficits - Psychiatric Psychiatric exam: Present: normal affect, normal mood - Skin Skin exam: Present: dry, warm. Absent: rash Internal Med - H&P Results - Labs CBC & Chem 7: 06/24/17 03:25 06/24/17 03:25 Labs: Short CBC 06/24/17 Range/Units 03:25 WBC 4.5 (4.3-11.1) K/mcL Hgb 13.2 (11.5-15.4) g/dL Hct 39.0 (35.3-44.9) % Plt Count 161 (140-400) K/mcL Neutrophils # 2.6 (1.6-8.9) K/mcL BMP 06/24/17 03:25 Sodium 140 Potassium 3.5 Chloride 106 Carbon Dioxide 25 BUN 7 Creatinine 0.76 Glucose 98 Calcium 8.5 L Cardiac Enzymes 06/24/17 Range/Units 03:25 Troponin I < 0.03 (< 0.04) ng/mL - EKG Data -: EKG Interpreted by Myself - EKG Data Prior EKG available for review: no EKG comments: 06/24/17 05:[address] elevation in V1 and V2; widened QRS/IVCD pattern; confirmed with Dr. Nettles suggestive of Brugada pattern - Diagnostic Studies Chest x-ray Status: image reviewed by me (negative) - Attending Attestation I discussed the patient AFOGNAK, PMH, ROS, lab dta, and exam findings with Dr. Dhaliwal. I then saw and examined patient independently as well. Chito presented to ER with Flu-like symptoms and vague abdominal pain. Because she noted some feeling of lightheadedness, an EKG was obtained and a Brugada pattern was noted and confirmed by Cardiology. Patient was subsequently admitted to the hospitalist service. When I saw and interviewed patient, she denies ever having had any chest pain, palpitations, dyspnea, or dyspnea exertion. However, she does report rare episodes of syncope, most of which occurred while she was with her most recent child and her first child several years ago. She does not recall any inciting event or symptoms. She simply lost consciousness and recovered shortly thereafter. She has also had a few episodes of syncope before , but those were several years ago. There is no family history of sudden cardiac or any known arrhythmias. Her pregnancies were otherwise uncomplicated. She did not have any cardiac symptoms or findings to suggest peripartum cardiomyopathy. Regarding her abdominal pain, it is not resolved and she denies any complaints. Her only complaint is the fever, cough, headache, and occasional nausea. Cardiology was consulted from the ER and we informed patient she will be seen by archives specialist. We will order serial EKGs and echocardiogram. Further cardiac workup and/or treatment to be coordinated with cardiology. Other than my comments above and noted exam findings, I agree with Dr. Dhaliwal's assessment and plan. - Assessment and plan (1) Brugada syndrome Current Visit: No Status: Acute (2) Influenza B Current Visit: No Status: Acute - Time Spent With Patient Total time spent is greater than 50% in coordination of care (as documented) at patient's floor/unit and/or counseling patient:
[2017-06-24] MEDS: 0.9 % Sodium Chloride 1,000 ML IVC SCH ×2 (03:54→14:09)
[2017-06-24] MEDS ORDERED: Ibuprofen 400 MG TABLET PO SCH (04:00)
[2017-06-24 04:04] LABS: Basophils % 0.2 %; Hemoglobin 13.2 g/dL (11.5-15.4); Immature Granulocytes % 0.2 % (0-4); Lymphocytes # 1.2 K/mcL (0.6-4.6); Lymphocytes % 27.7 %; Mean Corpuscular HGB Conc 33.8 g/dL (31.6-35.5); Mean Corpuscular Hemoglobin 30.3 pg (28.0-33.3); Mean Corpuscular Volume 89.4 fL (83.0-100.0); Mean Platelet Volume 9.4 fL (9.4-12.4); Monocytes # 0.6 K/mcL (0.0-1.3); Monocytes % 14.3 %; Neutrophils # 2.6 K/mcL (1.6-8.9); Platelet Count 161 K/mcL (140-400); Red Blood Count 4.36 M/mcL (3.82-4.97); Red Cell Distribution Width 14.1 % (11.5-14.5); Segmented Neutrophils % 57.6 %
[2017-06-24 04:28] LABS: BUN/Creatinine Ratio 9 (6-26); Blood Urea Nitrogen 7 mg/dL (6-20); Calcium 8.5 mg/dL (8.6-10.3); Carbon Dioxide 25 mEq/L (23-29); Chloride 106 mEq/L (98-107); Glucose 98 mg/dL (70-105); Osmolality,Calculated 288 (280-300); Potassium 3.5 mEq/L (3.5-5.1); Sodium 140 mEq/L (136-145); eGFR For African Americans > 60 (> 60); eGFR For Non-African Americans > 60 (> 60)
[2017-06-24] MEDS: *HR* Heparin 5,000 UNIT/ML VIAL SQ SCH ×2 (06:25→21:36)
--- NOTE | 2017-06-24 10:00 | Internal Med Progress Note ---
<Neftali Donahue - Last Filed: 06/24/17 14:03> Date of Encounter: 06/24/17 Time of Encounter: 09:59 - Assessment and plan (1) Influenza B Current Visit: Yes Status: Acute Assessment and plan: Patient positive for influenza B. Patient received 1 L of IVF bolus and is on maintenance fluids. She remains clinically dry on exam, and mildly hypotensive. Will replenish fluids, and clinically monitor volume status. - Tamiflu twice a day. - ordered 1L IVF NS bolus, continue maintenance fluids - closely follow fluid status and Vitals. - Phenergan when necessary for nausea and vomiting - Avoid Zofran as it increases QT interval. - Tight control of fevers as fevers can trigger Brugada pattern or sudden cardiac in those with underlying Brugada pattern. Continue tylenol for temperature control. (2) Brugada syndrome Current Visit: Yes Status: Acute Assessment and plan: EKG findings suggestive of Brugada pattern. Patient and sister report near- syncopal episodes multiple times a year. Recommended that family members to be worked up outpatient. trops neg x3. bnp not elevated. - cardiology consulted, appreciate their input - echo ordered by night team - will avoid Zofran as it prolongs QT interval. - will tightly control flu symptoms to prevent exacerbation of underlying brugada pattern - per EP recommendations; echo has normal findings will have follow up outpatient with Dr. Vinicio Mulligan or with [facility] due to multiple siblings (3) DVT prophylaxis Current Visit: Yes Status: Acute Assessment and plan: SQ heparin (4) Nausea & vomiting Current Visit: Yes Status: Acute Assessment and plan: currently controlled with phenergen. avoid zofran. Qualifiers: Qualified Code(s): R11.2 - Nausea with vomiting, unspecified - Time Spent With Patient Total time spent is greater than 50% in coordination of care (as documented) at patient's floor/unit and/or counseling patient: - Subjective Interval history: Ms Ochoa is a 22 F who is found to be positive for Flu B and incidental finding of Brugada syndrome. Patient reports feeling better today. Patient was seen her family by bedside. Patient reports no events overnight and no new complaints. Patient denies SOB, CP, feeling feverish, swelling, headaches. - Constitutional Vitals: Temp Pulse Resp BP Pulse Ox 98.5 F 76 14 98/67 98 06/24/17 06:43 06/24/17 06:43 06/24/17 06:43 06/24/17 06:43 06/24/17 06:43 General appearance: Present: A&O X 3, pleasant, no acute distress - Head Head exam: Present: atraumatic, normocephalic - ENT ENT exam: Present: mucous membranes dry (oral mucus membranes) - Respiratory Respiratory exam: Present: CTAB. Absent: accessory muscle use, rales, rhonchi, wheezes - Cardiovascular Cardiovascular exam: Present: RRR Internal Medicine: Result - Labs CBC & Chem 7: 06/24/17 03:25 06/24/17 03:25 Labs: Short CBC 06/24/17 Range/Units 03:25 WBC 4.5 (4.3-11.1) K/mcL Hgb 13.2 (11.5-15.4) g/dL Hct 39.0 (35.3-44.9) % Plt Count 161 (140-400) K/mcL Neutrophils # 2.6 (1.6-8.9) K/mcL BMP 06/24/17 03:25 Sodium 140 Potassium 3.5 Chloride 106 Carbon Dioxide 25 BUN 7 Creatinine 0.76 Glucose 98 Calcium 8.5 L Cardiac Enzymes 06/24/17 06/24/17 Range/Units 03:25 09:01 Troponin I < 0.03 < 0.03 (< 0.04) ng/mL Consult Discharge Plan - Plan Referrals: Lupe Chavez MD [Primary Care Provider] - <Jd Plascencia - Last Filed: 06/24/17 18:43> Date of Encounter: 06/24/17 - Assessment and plan (1) Influenza B Current Visit: Yes Status: Acute (2) Dehydration Current Visit: Yes Status: Acute (3) Brugada syndrome Current Visit: Yes Status: Acute (4) DVT prophylaxis Current Visit: Yes Status: Acute (5) Nausea & vomiting Current Visit: Yes Status: Resolved Qualifiers: Qualified Code(s): R11.2 - Nausea with vomiting, unspecified - Time Spent With Patient Total time spent is greater than 50% in coordination of care (as documented) at patient's floor/unit and/or counseling patient: - Constitutional Vitals: Temp Pulse Resp BP Pulse Ox 99.0 F 78 15 98/61 98 06/24/17 16:00 06/24/17 16:00 06/24/17 16:00 06/24/17 16:00 06/24/17 16:00 Internal Medicine: Result - Labs CBC & Chem 7: 06/24/17 03:25 06/24/17 03:25 Labs: Short CBC 06/24/17 Range/Units 03:25 WBC 4.5 (4.3-11.1) K/mcL Hgb 13.2 (11.5-15.4) g/dL Hct 39.0 (35.3-44.9) % Plt Count 161 (140-400) K/mcL Neutrophils # 2.6 (1.6-8.9) K/mcL BMP 06/24/17 03:25 Sodium 140 Potassium 3.5 Chloride 106 Carbon Dioxide 25 BUN 7 Creatinine 0.76 Glucose 98 Calcium 8.5 L Cardiac Enzymes 06/24/17 06/24/17 Range/Units 03:25 09:01 Troponin I < 0.03 < 0.03 (< 0.04) ng/mL - Impressions Impressions Echocardiogram 06/24/17 03:06 Impressions: LVEF 55-60%. Normal LV chamber size, wall thickness and function. Normal right ventricular structure and function. Unable to estimate RVSP due to lack of TR jet. No significant valvular dysfunction. Left Ventricular Wall Motion: Rest Echo Findings All wall segments showed normal motion. Findings: Study Quality * Technically adequate exam. ECG Findings * Normal sinus rhythm. Left Ventricle * LVEF 55-60%. * Normal LV chamber size, wall thickness and function. Right Ventricle * Normal right ventricular structure and function. Left Atrium * Mildly dilated left atrium. Right Atrium * Normal right atrial size. Aortic Valve * Trileaflet aortic valve with normal function. * No aortic regurgitation. * No aortic stenosis. Mitral Valve * Normal mitral valve structure and function. * No mitral regurgitation. * No mitral stenosis. Tricuspid Valve * Normal tricuspid valve structure and function. * No tricuspid regurgitation. * Unable to estimate RVSP due to lack of TR jet. Pulmonic Valve * Normal pulmonic valve structure and function. * No pulmonic regurgitation. Aorta * Normally sized aortic root. Pericardium * The pericardium appears normal. IVC * Normal IVC dimensions and inspiratory collapse. Pulmonary Artery * Normal visualized portions of the main pulmonary artery. - Attending Attestation I examined this patient and my medical decision-making was reviewed with the Resident Physician on 06/24/17. I agree with the documented findings, disposition and treatment plan as described except to the extent set forth below. Ms Ochoa is currently in observation for influenza B and Brugada EKG changes. She remains moderate to high risk. Ms Ochoa feels OK. She has had some fever. Still with cough. No GI issues. Exam alert Comfortable Mucus membranes dry Heart reg No wheeze abd soft I/P 1. Influenza B 2. Brugada Further diagnoses and plan as above.
[2017-06-24] MEDS ORDERED: 0.9 % Sodium Chloride 1,000 ML IVC ONE (10:19)
--- NOTE | 2017-06-24 12:19 | Electrophysiology Consult Note ---
Addendum entered and electronically signed by Tyrell Gracia CNP 06/25/17 11:00: Please note diagnosis should be brugada pattern, not syndrome. Original Note: <Tyrell Gracia - Last Filed: 06/24/17 13:27> Date of Encounter: 06/24/17 Time of Encounter: 12:16 Assessment and Plan (1) Brugada syndrome Current Visit: Yes Status: Acute Initial EKG on presentation is concerning for Brugada syndrome. Subsequent EKG not as evident, but presented with febrile illness--flu B, which is often times when Brugada is more evident. Pt denies any known family history of Brugada or family history of sudden cardiac . She does endorse syncope that usually occurs a couple of times per year. Denies chest pain or palpitations. Telemetry with no arrhythmias noted. TTE pending. Discussed with Dr. Vinicio Mulligan. Outpt follow-up for possible EP study. Can also discuss referral as outpt for genetic testing at [facility], as pt has 2 brothers and one sister. If no significant findings on TTE, anticipate sign off with outpt follow-up. Discussion w patient/family: The assessment and plan as outlined above was discussed with the patient and/or family members who expressed understanding and agreement. All questions were answered. Thank you for involving us in the care of your patient. Please call with any questions. I will discuss all the above with Dr. Vinicio Mulligan and make changes as necessary. History of Present Illness Consult date: 06/24/17 Requesting physician: Jese Mckeon Consult reason: Brugada pattern on EKG Chief complaint: GI symptoms, fever History of present illness: Ms. Ochoa is a 22 year old female that presented to ED with acute onset nausea, vomiting, and fever. Endorses dizziness and lightheadedness. She denies headaches, visual disturbances, or syncope. She denies any chest pain, palpitations, shortness of breath, abdominal pain, or diarrhea. In the ED, the patient was found to have what appears to be a Brugada pattern on EKG examination with elevations in V1 and V2. EP consulted for further recommendations. Reportedly pt is positive for influenza B. I do not see results of this testing. Pt does report history of syncope, usually a couple times per year. These episodes occurred during and also not while . Denies palpitations. No known family hx of Brugada and no known relatives with sudden cardiac . TTE pending. Past Med Surg Social Fam HX - Past Medical History Medical history: other Psychiatric history: anxiety, depression - Past Surgical History Surgical History: other - Social History Smoking Status: Never smoker Smokeless Tobacco Status: No Alcohol use: occasionally Drug use: none Medications and Allergies Levonorgestrel [Mirena] 52 mg IY AD 06/24/17 [History] Mv,Fe,Min/Lutein [A Thru Z [employer]'s Tablet] 1 tab PO DAILY 06/24/17 [ History] Oseltamivir [Tamiflu] 75 mg PO BID 4 Days #7 capsule 06/25/17 [Rx] Oseltamivir [Tamiflu] 75 mg PO BID 4 Days #7 capsule 06/25/17 [Rx] 3 Allergy/AdvReac Type Severity Reaction Status Date / Time No Known Allergies Allergy Verified 07/13/16 09:02 All Systems Review: The remainder of the systems were reviewed and are negative - Constitutional Constitutional: fever(s) - Cardiovascular Cardiovascular: as per HPI, syncope - Gastrointestinal Gastrointestinal: nausea Physical Examination Vital Signs Temp Pulse Resp BP Pulse Ox 06/24/17 06:43 98.5 F 76 14 98/67 98 06/24/17 06:31 99 F 06/24/17 03:05 98.6 F 77 16 100/58 97 06/24/17 00:58 99.4 F 94 20 89/58 96 06/23/17 23:43 102.9 F H 06/23/17 21:50 100.2 F H 110 24 100/67 96 Intake and Output 06/23/17 06/24/17 06/24/17 23:59 07:59 15:59 Intake Total 1000 / 1000 0 / 0 Output Total 0 / 0 Balance 1000 / 1000 0 / 0 Intake: IV Fluids 1000 / 1000 0.9 % Sodium Chloride 1,000 ML 1000 / 1000 @ 3750 mls/hr IVC .Q16M ONE Rx# :[id number] Oral 0 / 0 0 / 0 Output: Urine 0 / 0 Other: Meal Breakfast Percent of Meal Consumed 0% Weight 70.307 kg 71 kg Patient Weight 06/24/17 23:59 Weight 71 kg General: Conversant, No Apparent Distress HEENT: Atraumatic, Normocephaly, Mucus Membranes Moist Neck: No JVD, Normal carotid pulses Cardiac: Reg Rate and Rhythm, Normal S1 and S2, No Murmur Lungs: Normal Breath Sounds, No Wheeze, Rales, Rhonchi Neuro: Alert and responsive, No focal deficits noted Abdomen: Soft, Non-Tender Skin: No rashes noted on visualized skin Musculoskeletal: No Chest Wall Tenderness Extremities: No Clubbing, No Cyanosis, No Edema, Normal Pulses Results 06/24/17 03:25 06/24/17 03:25 Lab Results 06/24/17 06/24/17 06/24/17 03:25 03:25 03:25 WBC 4.5 Hgb 13.2 Hct 39.0 Plt Count 161 Sodium 140 Potassium 3.5 Chloride 106 Carbon Dioxide 25 BUN 7 Creatinine 0.76 Glucose 98 Calcium 8.5 L Troponin I < 0.03 B-Natriuretic Peptide 06/24/17 06/24/17 03:25 09:01 WBC Hgb Hct Plt Count Sodium Potassium Chloride Carbon Dioxide BUN Creatinine Glucose Calcium Troponin I < 0.03 B-Natriuretic Peptide 13 Short CBC 06/24/17 06/23/17 Range/Units 03:25 22:51 WBC 4.5 4.3 (4.3-11.1) K/mcL Hgb 13.2 13.5 (11.5-15.4) g/dL Hct 39.0 40.0 (35.3-44.9) % Plt Count 161 169 (140-400) K/mcL Neutrophils # 2.6 2.4 (1.6-8.9) K/mcL BMP 06/24/17 06/23/17 Range/Units 03:25 22:51 Sodium 140 138 (136-145) mEq/L Potassium 3.5 3.6 (3.5-5.1) mEq/L Chloride 106 104 (98-107) mEq/L Carbon Dioxide 25 27 (23-29) mEq/L BUN 7 8 (6-20) mg/dL Creatinine 0.76 0.90 (0.60-1.20) mg/dL Glucose 98 99 (70-105) mg/dL Calcium 8.5 L 9.2 (8.6-10.3) mg/dL Cardiac Enzymes 06/24/17 06/24/17 06/23/17 Range/Units 09:01 03:25 22:51 Troponin I < 0.03 < 0.03 < 0.03 (< 0.04) ng/mL Liver Function 06/23/17 Range/Units 22:51 Total Bilirubin 0.3 (0.3-1.0) mg/dL AST 27 (13-39) Units/L ALT 12 (7-52) Units/L Alkaline Phosphatase 85 (34-104) Units/L Albumin 4.4 (3.5-5.7) g/dL Urine 06/23/17 Range/Units 22:25 Urine Color Yellow (Yellow) Urine Clarity Clear (Clear) Urine pH 6.0 (5.0-8.0) pH Units Ur Specific [place] 1.026 H (1.010-1.025) Urine Protein Negative (Neg-Trace) mg/dL Urine Glucose (UA) Normal (Normal) mg/dL Impressions Chest X-Ray 06/24/17 00:05 IMPRESSION: No acute disease. D/ / Rafa Becerra MD / Rafa Becerra MD Interpreting Provider: Rafa Becerra MD Abdomen/Pelvis CT 06/24/17 00:10 IMPRESSION: No acute findings within the abdomen or pelvis. The appendix caliber is at the upper limits of normal. However, there are no significant inflammatory changes to suggest acute appendicitis. There are prominent periuterine/adnexal veins, which are nonspecific, but may represent pelvic congestion syndrome in the appropriate clinical setting. D/ / 06/24/2017 07:12:50 Huy Enriquez MD / bcaflower Interpreting Provider: Huy Enriquez MD Active Medications Acetaminophen (Tylenol) 650 mg PO Q6HR PRN PRN Reason: Mild Pain/Fever Stop: 12/24/17 03:09 Heparin Sodium (Porcine) (Heparin) 5,000 unit SQ Q12HCO LEONORA Stop: 12/24/17 06:01 Last Admin: 06/24/17 06:25 Dose: 5,000 unit Sodium Chloride (0.9 % Sodium Chloride) 1,000 mls @ 125 mls/hr IVC .Q8H LEONORA Stop: 06/24/17 19:14 Last Admin: 06/24/17 03:54 Dose: 125 mls/hr Promethazine HCl 12.5 mg/ (Sodium Chloride) 50.5 mls @ 204 mls/hr IVPB Q6HR PRN PRN Reason: Nausea And Vomiting Stop: 12/24/17 03:16 Naloxone HCl (Narcan) 0.4 mg IVP Q2MIN PRN PRN Reason: SEE COMMENTS Stop: 12/24/17 03:09 Oseltamivir Phosphate (Tamiflu) 75 mg PO BID [facility] Stop: 06/28/17 09:01 Last Admin: 06/24/17 09:45 Dose: Not Given - Imaging and Cardiology Echo: pending - EKG Interpretation EKG results cardiology: personally reviewed (SR, concerning for Brugada.), other (12 hr tele AVG HR 74, SR, no significant pauses or arrhythmias noted.) Consult Discharge Plan - Plan Instructions: Oseltamivir (By mouth), Influenza (DC) Additional Instructions: Please take Tylenol or Ibuprofen every 6 hrs to prevent fevers. Alternate in order to take every 6 hours. Your prescriptions were called in to [facility] pharmacy. Referrals: Vinicio Mulligan MD [Partnered Physician] - (office will call patient at home with appointment date and time) Lupe Chavez MD [Primary Care Provider] - 07/03/17 11:20 am Prescriptions: Oseltamivir [Tamiflu] 75 mg PO BID 4 Days #7 capsule Oseltamivir [Tamiflu] 75 mg PO BID 4 Days #7 capsule <Vinicio Mulligan - Last Filed: 06/25/17 15:28> Date of Encounter: 06/25/17 - Attending Attestation I have personally performed a face to face evaluation on this patient. I have reviewed and agree with the care plan. History and Exam by me shows: Possible Brugada pattern on EKG during febrile illness. Would recommend outpt workup to rule out structural heart disease, further risk statify. Assessment and Plan Discussion w patient/family: The assessment and plan as outlined above was discussed with the patient and/or family members who expressed understanding and agreement. All questions were answered. Thank you for involving us in the care of your patient. Please call with any questions. History of Present Illness History of present illness: Ms. Ochoa is a 22 year old female All Systems Review: The remainder of the systems were reviewed and are negative Results 06/24/17 03:25 06/24/17 03:25
[2017-06-24] MEDS: Acetaminophen 325 MG TABLET PO PRN (12:48)
[2017-06-24] MEDS ORDERED: Ibuprofen 600 MG TABLET PO STA (15:16)
[2017-06-25] MEDS: *HR* Heparin 5,000 UNIT/ML VIAL SQ SCH (04:56)
[2017-06-25] MEDS: Acetaminophen 325 MG TABLET PO PRN (04:57)
[2017-06-25] MEDS ORDERED: 0.9 % Sodium Chloride 1,000 ML IVC ONE (09:02)
--- NOTE | 2017-06-25 09:36 | Electrocardiograph Report ---
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
--- NOTE | 2017-06-25 10:47 | Discharge Summary ---
<Neftali Donahue - Last Filed: 06/25/17 13:17> Orders not resulted at time of discharge: Pending orders 06/25/17 06:00 ECG 12 lead ECG [ECG] AM 0600 Date of Encounter: 06/25/17 Time of Encounter: 09:00 - Discharge Diagnosis (1) Brugada syndrome Priority: Secondary Status: Acute (2) Influenza B Priority: Primary Status: Acute (3) DVT prophylaxis Priority: Secondary Status: Acute (4) Nausea & vomiting Priority: Secondary Status: Resolved Qualifiers: Qualified Code(s): R11.2 - Nausea with vomiting, unspecified (5) Dehydration Priority: Secondary Status: Acute Hospital course: Ms. Ochoa is a 22 year old female presented with sudden onset of nausea, vomiting, and generalized weakness for 1 day. Patient admits to having multiple episodes of near syncope in the past. Patient was found to be positive for influenza B. Due to onset of symptoms <24 hours patient was given dosing of tamiflu during hospitalization. She was also given fluid resuscitation support during hospitalization. She remained hospitalized for 3 days, and was asymptomatic. Patient did have 2 instances of fever which responded to tylenol and motrin. Patient was mildly hypotensive on 2nd day and last day of admission, on each of those days she was given 1 L IVF bolus. Recommended to patient to stay well hydrated on discharge and to use combination of tylenol and motrin if she continued to have a fever. Patient will be discharged a total of 7 doses of tamiflu which will cover her for 3.5 days to complete. Patient to have PCP follow up within 3 days of follow up. During workup, EKG was acquired which showed patient had Brugada Pattern type 3. EP was consulted, and recommended outpatient follow at [facility] or [facility] for genetic testing as patient has 1 sister who has near syncopal events and 2 brothers. Genetic testing was recommended to patient. Consequences of Brugada Syndrome was discussed with patient mutliple times, including risk of sudden and that it would be in the best interest for her siblings and children to be evaluated. Discharge discussed with: patient, family Time spent discussing smoking cessation with patient: more than 10 minutes - Time Spent with Patient Total time spent providing and/or coordinating discharge services: Greater than 30 minutes - Discharge Medications Prescriptions: Oseltamivir [Tamiflu] 75 mg PO BID 4 Days #7 capsule Oseltamivir [Tamiflu] 75 mg PO BID 4 Days #7 capsule Home Medications: Levonorgestrel [Mirena] 52 mg IY AD 06/24/17 [History] Mv,Fe,Min/Lutein [A Thru Z [employer]'s Tablet] 1 tab PO DAILY 06/24/17 [ History] Oseltamivir [Tamiflu] 75 mg PO BID 4 Days #7 capsule 06/25/17 [Rx] Oseltamivir [Tamiflu] 75 mg PO BID 4 Days #7 capsule 06/25/17 [Rx] Allergies/Adverse Reactions: 3 Allergy/AdvReac Type Severity Reaction Status Date / Time No Known Allergies Allergy Verified 07/13/16 09:02 Date of admission: 06/24/17 01:33 Primary care physician: Lupe Chavez, Discharging clinician: Neftali Donahue Anticipated date of discharge: 06/25/17 - Constitutional Vitals: Temp Pulse Resp BP Pulse Ox 98.3 F 95 16 102/67 98 06/25/17 07:00 06/25/17 07:00 06/25/17 07:00 06/25/17 07:00 06/25/17 07:00 General appearance: Present: cooperative, A&O X 3, pleasant, no acute distress - ENT ENT exam: Present: mucous membranes moist - Neck Neck exam general surgery: Present: supple - Respiratory Respiratory exam: Present: CTAB - Cardiovascular Cardiovascular exam: Present: RRR - GI/Abdominal GI/Abdominal exam: Present: normal bowel sounds. Absent: distended, firm, guarding - Extremities Exam Extremities exam: Absent: pedal edema - Patient Status Disposition: Home, Self-Care Condition: Fair Functional capacity at discharge: independent ambulation Overall status at discharge: patient is progressing back to baseline - Discharge Instructions Instructions: Oseltamivir (By mouth), Influenza (DC) Follow Up With: Vinicio Mulligan MD [Partnered Physician] - (office will call patient at home with appointment date and time) Lupe Chavez MD [Primary Care Provider] - 07/03/17 11:20 am Additional Instructions: Please take Tylenol or Ibuprofen every 6 hrs to prevent fevers. Alternate in order to take every 6 hours. Your prescriptions were called in to [facility] pharmacy. - Diet and Activity Activity: increase activity as tolerated Diet: advance to your usual diet <Kelley,Yanjuan - Last Filed: 06/25/17 17:37> Orders not resulted at time of discharge: Pending orders 06/25/17 06:00 ECG 12 lead ECG [ECG] AM 0600 Date of Encounter: 06/25/17 Hospital course: Ms. Ochoa is a 22 year old female - Time Spent with Patient Total time spent providing and/or coordinating discharge services: Date of admission: 06/24/17 01:33 Primary care physician: Lupe Chavez, - Constitutional Vitals: Temp Pulse Resp BP Pulse Ox 97.9 F 95 16 100/66 98 06/25/17 11:00 06/25/17 07:00 06/25/17 07:00 06/25/17 11:00 06/25/17 07:00 - Attending Attestation I saw and examined this patient independently, and my medical decision making was reviewed with the resident physician on 2017. I agree with the documented findings, assessment and treatment plan as described in the discharge summary.
[2017-06-25 11:45] VITALS: BP 100/66
--- NOTE | 2017-06-28 12:30 | Electrocardiograph Report ---
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
== END 2017-06-25 16:07 | disposition home or self-care (01) ==
LOC: 2NENU 21:48 → EMEROO 21:48 → SUATTDRO 06-24 01:33 → 2NENU 06-24 02:29
PROVIDERS: ADMIT Pediatrics; ATTEND Hospitalist

== ENCOUNTER 2020-12-10 03:09 | Observation (INO) ==
[2020-12-10 06:50] LABS: Basophils % 0.4 %; Eosinophils # 0.1 K/mcL (0.0-0.6); Eosinophils % 1.7 %; Hematocrit 44.9 % (35.3-44.9); Hemoglobin 14.9 g/dL (11.5-15.4); Immature Granulocytes % 0.2 % (0-4); Lymphocytes # 1.8 K/mcL (0.6-4.6); Mean Corpuscular HGB Conc 33.2 g/dL (31.6-35.5); Mean Corpuscular Volume 93.5 fL (83.0-100.0); Mean Platelet Volume 9.4 fL (9.4-12.4); Monocytes # 0.4 K/mcL (0.0-1.3); Monocytes % 8.5 %; Neutrophils # 2.4 K/mcL (1.6-8.9); Platelet Count 156 K/mcL (140-400); Red Cell Distribution Width 13.2 % (11.5-14.5); Segmented Neutrophils % 50.2 %; White Blood Count 4.7 K/mcL (4.3-11.1)
[2020-12-10 07:15] LABS: BUN/Creatinine Ratio 12 (6-26); Blood Urea Nitrogen 8 mg/dL (6-20); Calcium 9.3 mg/dL (8.6-10.3); Carbon Dioxide 29 mEq/L (23-29); Chloride 102 mEq/L (98-107); Glucose 90 mg/dL (70-105); Osmolality,Calculated 286 (280-300); Potassium 3.7 mEq/L (3.5-5.1); Sodium 139 mEq/L (136-145); Troponin I < 0.03 ng/mL (< 0.04); eGFR For African Americans > 60 (> 60); eGFR For Non-African Americans > 60 (> 60)
[2020-12-10] MEDS ORDERED: Perflutren Lipid Microsphere 1.3 ML in 0.9 % Sodium Chloride 8.7 ML IVP PRN (08:48)
[2020-12-10] MEDS ORDERED: Naloxone 0.4 MG/ML INJ IVP PRN (17:13)
[2020-12-10] MEDS ORDERED: Ondansetron 4 MG/2 ML VIAL IVP PRN (17:13)
[2020-12-10] MEDS ORDERED: Isovue-370 500 ML BOTTLE IVP ONE (18:05)
[2020-12-10 19:22] LABS: Phosphorous 3.2 mg/dL (2.7-4.5)
[2020-12-10 19:25] LABS: Troponin I < 0.03 ng/mL (< 0.04)
[2020-12-10 19:40] LABS: Thyroid Stimulating Hormone 0.905 mcIU/mL (0.340-5.600)
[2020-12-10 23:47] LABS: Adenovirus Not Detected (Not Detect); Bordetella Pertussis Not Detected (Not Detect); Chlamydophila pneumoniae Not Detected (Not Detect); Coronavirus 229E Not Detected (Not Detect); Coronavirus HKU1 Not Detected (Not Detect); Coronavirus NL63 Not Detected (Not Detect); Coronavirus OC43 Not Detected (Not Detect); Human Metapneumovirus Not Detected (Not Detect); Human Rhinovirus/Enterovirus Not Detected (Not Detect); Influenza A Subtype 2009 H1 Not Detected (Not Detect); Influenza B Not Detected (Not Detect); Mycoplasma pneumoniae Not Detected (Not Detect); Parainfluenza Virus 1 Not Detected (Not Detect); Parainfluenza Virus 2 Not Detected (Not Detect); Parainfluenza Virus 3 Not Detected (Not Detect); Parainfluenza Virus 4 Not Detected (Not Detect); Respiratory Syncytial Virus Not Detected (Not Detect)
[2020-12-10 23:49] LABS: SARS-CoV-2 DETECTED (Not Detect)
[2020-12-12 08:56] VITALS: PULSE 54
[2020-12-12 12:56] VITALS: BP 99/63; TEMP 98.1; O2SAT 96
[2020-12-12] MEDS ORDERED: FLU Vac QV 21-22 (6Month+)/PF 0.5 ML SYRINGE IM ONE (14:25)
== END 2020-12-12 15:22 | disposition home or self-care (01) ==
LOC: 4WAOSI 03:09 → EMEROOARM 03:09 → SUATTDRO 07:58 → 4WAOSI 08:31
PROVIDERS: ADMIT Student in an Organized Health Care Education/Training Program; ATTEND Internal Medicine